=== PATIENT | female | born 1940 | race Caucasian/White ===

== ENCOUNTER 2017-07-22 18:38 | Emergency (ER) | payer MEDICARE ==
[2017-07-22] MEDS ORDERED: Bupivacaine 0.5% 10 ML VIAL ONE (19:09)
[2017-07-22] MEDS ORDERED: Lidocaine 2% PF 5 ML VIAL ONE (19:09)
[2017-07-22] MEDS ORDERED: Ondansetron HCl/PF 4 MG/2 ML Vial ONE ×3 (19:35→19:37)
--- NOTE | 2017-07-22 19:56 | RAD ---
TWO VIEWS OF THE RIGHT SHOULDER 07/22/17 HISTORY: Patient fell from standing position outside and landed on right shoulder. Right shoulder injury. FINDINGS: There is a comminuted fracture involving the right humeral neck and the fracture also involves the hu meral head. There is mild separation of fracture fragments. There is mild apex lateral angulation of the fracture fragments. There is prominent right glenohumeral osteoarthropathy noted. The coracoclavi cular and acromioclavicular distances are within normal limits. Linear densities are seen at the righ t lung base probably related to atelectasis. IMPRESSION: 1. Comminuted, mildly , and angulated fracture involving the right humeral head and rig ht humeral head. 2. Prominent right glenohumeral osteoarthropathy. POS: [facility]
== END 2017-07-22 20:40 | disposition home or self-care (01) ==
LOC: ERS 18:38
DX: S42.201A Unspecified fracture of upper end of right humerus, initial encounter for closed fracture (principal); I25.10 Atherosclerotic heart disease of native coronary artery without angina pectoris; E78.5 Hyperlipidemia, unspecified; I10 Essential (primary) hypertension; E11.9 Type 2 diabetes mellitus without complications; W19.XXXA Unspecified fall, initial encounter
CPT/HCPCS: 96374; 96375; J2001; J2270; J2405; J3490